=== PATIENT | female | born 1990 | race Caucasian/White ===

== ENCOUNTER 2020-03-24 08:18 | Inpatient (IN) | payer BC, MEDICAID ==
[~2020-03-24] VITALS: Ht 165.1 cm; Wt 66.8 kg
[2020-03-24 08:22] VITALS: BP 115/78
[2020-03-24 08:32] VITALS: BP 115/78
[2020-03-24] MEDS ORDERED: NS 1000ML 1,000 ML ONE (08:32)
--- NOTE | 2020-03-24 08:35 | ER.PDOC ---
General Chief Complaint: Requesting Medical Care Stated Complaint: FLU LIKE SYMPTOMS Time seen by MD: 08:28 Source: patient Exam Limitations: no limitations History of Present Illness Initial Comments Patient c/o fever, sore throat, cough, nausea with vomiting x 24 hours. Tmax 103. Denies SOB. She also c/o redness, warmth and pain in left breast and bel ieves she may have mastitis. Timing/Duration: gradual, yesterday Severity: mild, moderate Associated Symptoms: fever/chills, sore throat, cough Allergies: Coded Allergies: No Known Allergies (Unverified , 03/24/20) Constitutional: chills, fever EENTM: throat pain Respiratory: cough Cardiovascular: no symptoms reported, other Gastrointestinal: nausea, vomiting Genitourinary: no symptoms reported Musculoskeletal: no symptoms reported Skin: no symptoms reported Psychiatric/Neurological: no symptoms reported Endocrine: no symptoms reported All Other Systems: Reviewed and Negative Past Medical History Medical History: no pertinent history Surgical History: no surgical history Family History Significant Family History: no pertinent family hx Social History Smoking: non-smoker Alcohol Use: none Drug Use: none Physical Exam General Appearance: alert, no distress, other (left breast is erythematous, tender and warm with induration c/w mastitis) Eye: eyes nml inspection, lids & conjunct. nml, PERRL, no nystagmus Nose: nose nml Throat: pharyngeal erythema Neck: nml inspection, supple Respiratory: no resp.distress, breath sounds nml Abdomen: non-tender, no organomegaly CVS: heart sounds nml, tachycardia (120-140 on exam) Skin: color nml, no rash, warm/dry Extremities: non-tender, nml ROM, no pedal edema NEURO/PSYCH: oriented x 3, motor nml Results/Orders Results/Orders Orders - ISAEL GREGG DO 0.9 % Sodium Chloride (Ns 1000ml) (03/24/20 08:32) Cbc With Auto Diff (03/24/20 08:36) Comprehensive Metabolic Panel (03/24/20 08:36) Blood Culture (03/24/20 08:36) Xr Chest 1v (03/24/20 08:36) PT (03/24/20 08:36) Partial Thromboplastin Time. (03/24/20 08:36) Saline Lock (03/24/20 08:36) Lactic Acid(Ml) (03/24/20 08:36) 0.9 % Sodium Chloride (Ns 1000ml) (03/24/20 08:36) Ondansetron Hcl/Pf (Zofran) (03/24/20 08:36) Ceftriaxone Sodium (Rocephin) (03/24/20 08:36) Influenza A&B (03/24/20 08:36) Strep Screen (03/24/20 08:36) Novel Coronavirus 2019(Dshs) (03/24/20 08:36) 0.9 % Sodium Chloride (Ns 100ml) (03/24/20 08:44) Ceftriaxone Sodium (Rocephin) (03/24/20 08:44) Urinalysis (03/24/20 08:52) Hcg Urine (03/24/20 08:52) Urine Culture (03/24/20 09:20) 0.9 % Sodium Chloride (Ns 1000ml) (03/24/20 09:59) Covid19 Antigen Viridiana Elvira (03/24/20 10:41) Vital Signs Date Time Temp Pulse Resp B/P (MAP) Pulse Ox O2 Delivery O2 Flow Rate FiO2 03/24/20 11:20 98.4 119 20 113/64 (80) 98 Room Air 03/24/20 10:20 98.4 118 20 105/64 (78) 98 Room Air 03/24/20 09:33 97.6 124 20 99/68 (78) 98 Room Air 03/24/20 08:32 97.6 128 20 115/78 (90) 97 Room Air 03/24/20 08:22 97.6 128 20 97 03/24/20 08:22 97.6 128 20 Administered Medications Medications (Trade) Dose Ordered Sig/Jose Route PRN Reason Start Time Stop Time Status Last Admin Dose Admin Ceftriaxone Sodium 1000 mg/ Sodium Chloride 100 ml @ 100 mls/hr STAT STAT IV 03/24/20 08:36 03/24/20 09:35 UNV 03/24/20 08:52 100 MLS/HR Ondansetron HCl (Zofran) 4 mg STAT STAT IV 03/24/20 08:36 03/24/20 08:37 UNV 03/24/20 08:52 4 MG Sodium Chloride 1,000 ml @ 0 mls/hr Q0M STAT IV 03/24/20 09:59 03/24/20 10:00 DC 03/24/20 10:04 1,000 MLS/HR Sodium Chloride 1,000 ml @ 1,200 mls/hr Q50M STAT IV 03/24/20 08:36 03/24/20 09:25 UNV 03/24/20 09:03 1,200 MLS/HR Laboratory Tests Test 03/24/20 08:40 03/24/20 09:06 03/24/20 09:20 03/24/20 10:58 White Blood Count 14.8 10^3/uL (4.5-11.0) H Red Blood Count 4.17 10^6/uL (4.00-5.20) Hemoglobin 13.9 g/dL (12.0-15.0) Hematocrit 40.4 % (36.0-46.0) Mean Corpuscular Volume 96.9 fL (78-100) Mean Corpuscular Hemoglobin 33.3 pg (26-34) Mean Corpuscular Hemoglobin Concent 34.4 g/dL (33-36.5) Red Cell Distribution Width 11.4 % (11.5-14.5) L Platelet Count 278 10^3/uL (150-400) Mean Platelet Volume 9.3 fL (7.8-11.0) Neutrophils (%) (Auto) 92.9 % (41.0-85.0) *H Lymphocytes (%) (Auto) 2.3 % (24.0-44.0) *L Monocytes (%) (Auto) 3.7 % (5.0-12.0) L Neutrophils # (Auto) 13.7 10^3/uL (1.8-7.7) H Lymphocytes # (Auto) 0.34 10^3/uL1 (1.0-4.8) L Monocytes # (Auto) 0.6 10^3/uL (0.3-0.8) Absolute Immature Granulocyte (auto 0.06 10^3 u/L (0-2) Absolute Eosinophils (auto) 0.1 10^3/uL (0.0-0.2) Immature Granulocytes % 0.40 % (0.00-0.50) Eosinophils % 0.6 % (0.0-5.0) Basophils % 0.1 % (0.0-0.2) Basophils # 0.0 10^3/uL (0.0-0.1) Prothrombin Time 12.4 SEC (9.3-11.3) H Prothrombin Time INR (Non-Therap) 1.2 Activated Partial Thromboplast Time 26.5 SEC (24.67-30.72) Sodium Level 135 mmol/L (132-145) Potassium Level 3.5 mmol/L (3.6-5.2) L Chloride Level 99.0 mmol/L (96-109) Carbon Dioxide Level 23.9 mmol/L (20.0-32) Anion Gap 15.6 Blood Urea Nitrogen 15 mg/dL (7-18) Creatinine 1.20 mg/dL (0.59-1.40) Estimated GFR () 64.7 (>/=60) Est GFR (CKD-EPI)(Non-Afr Moroccan) 53.5 (>/=60) BUN/Creatinine Ratio 12.0 Glucose Level 134 mg/dL (70-110) H Calcium Level 9.5 mg/dL (8.4-10.5) Total Bilirubin 1.3 mg/dL (0.2-1.0) H Aspartate Amino Transferase (AST) 47 U/L (0-35) H Alanine Aminotransferase (ALT) 71 U/L (12-78) Alkaline Phosphatase 89 U/L (50-136) Total Protein 8.7 g/dL (6.4-8.2) H Albumin 4.1 g/dL (3.4-5.0) Globulin 4.6 Albumin/Globulin Ratio 0.891 Influenza Type A Antigen NEGATIVE (NEG) Influenza B Immunofluorescence NEGATIVE (NEG) Group A Streptococcus Screen POSITIVE (NEGATIVE) Lactic Acid Level 2.9 mmol/L (0.5-1.9) *H Urine Collection Type VOID Urine Color DARK YELLOW (YELLOW) H Urine Appearance CLOUDY (CLEAR) H Urine Bilirubin NEGATIVE MG/DL (NEGATIVE) Urine Ketones 15 mg/dL (NEGATIVE) H Urine Specific [place] >1.030 (1.005-1.035) Urine pH 5.5 (5.0-6.0) Urine Protein 30 mg/dL (NEGATIVE) H Urine Urobilinogen 1.0 (NEGATIVE) H Urine Nitrate NEGATIVE (NEGATIVE) Urine Leukocyte Esterase NEGATIVE (NEGATIVE) Urine Blood SMALL (NEGATIVE) Urine RBC 5-10 RBC/HPF (NONE SEEN) H Urine WBC 2-5 WBC/HPF (0-2) Urine Squamous Epithelial Cells MANY #/HPF (FEW) Urine Bacteria MANY (NONE SEEN) H Urine Glucose NORMAL (NEGATIVE) Urine HCG, Qualitative NEGATIVE (NEGATIVE) SARS-CoV-2 Antigen (Rapid) NEGATIVE (NEGATIVE) Progress Progress WBC 14.8, lactic acid 2.9, strep +; after 2L NS bolus, patient's HR persists 118 EKG/XRAY/CT/US XRAY: chest (clear) Consult/PCP Time Consult/PCP Called: 11:29 Consult/PCP: Dr. Moncada Reason/Comments: will admit ER DEPART Departure Time of Disposition: 10:45 Disposition: 09 ADMITTED INPATIENT Impression: Primary Impression: Mastitis Additional Impressions: Viral syndrome Suspected 2019 novel coronavirus infection Dehydration Strep pharyngitis Sepsis Condition: Improved Referrals: PCP,UNKNOWN (PCP) PRIMARY CARE PROVIDER Duration or Time Spent with Pa: 20 min Problem Qualifiers Additional Impressions: Sepsis Sepsis type: sepsis due to unspecified organism Sepsis acute organ dysfunction status: without acute organ dysfunction Qualified Codes: A41.9 - Sepsis, unspecified organism ISAEL GREGG DO Mar 24, 2020 08:35
[2020-03-24] MEDS ORDERED: ZOFRAN IV STA (08:36)
[2020-03-24] MEDS ORDERED: NS 1000ML 1,000 ML IV STA (08:36)
[2020-03-24] MEDS ORDERED: ROCEPHIN 1,000 MG in NS 100ML 100 ML IV STA (08:36)
[2020-03-24] MEDS ORDERED: NS 100ML 100 ML IV ONE (08:44)
[2020-03-24] MEDS ORDERED: ROCEPHIN ONE (08:44)
[2020-03-24 09:02] LABS: BASOPHIL % 0.1 % (0.0-0.2); EOSINOPHIL # 0.1 10^3/uL (0.0-0.2); EOSINOPHIL % 0.6 % (0.0-5.0); LYMPHOCYTES # 0.34 10^3/uL1 (1.0-4.8); LYMPHOCYTES % 2.3 % (24.0-44.0); MEAN CORP HGB 33.3 pg (26-34); MONOCYTES # 0.6 10^3/uL (0.3-0.8); MONOCYTES % 3.7 % (5.0-12.0); NEUTROPHIL # 13.7 10^3/uL (1.8-7.7); NEUTROPHILS % 92.9 % (41.0-85.0); PLATELET COUNT 278 10^3/uL (150-400); RED CELL DISTRIBUTION WIDTH 11.4 % (11.5-14.5)
[2020-03-24 09:19] LABS: CALCIUM 9.5 mg/dL (8.4-10.5); CARBON DIOXIDE 23.9 mmol/L (20.0-32)
[2020-03-24 09:33] VITALS: BP 99/68
--- NOTE | 2020-03-24 09:34 | NUR ---
CRITICAL [facility] FROM LAB CALLED WITH LACTIC ACID OF 2.9, REPEATED AND REPORTED TO EDP.
--- NOTE | 2020-03-24 09:42 | DIREP ---
PROCEDURE:CHEST 1 VIEW COMPARISON:None. INDICATIONS:fever, cough FINDINGS: LUNGS/PLEURA:No significant pulmonary parenchymal abnormalities or pleural effusion. CARDIAC:Normal cardiac silhouette and normal pulmonary vascularity. MEDIASTINUM:Normal BONES:Normal OTHER:No additional findings. CONCLUSION:No acute cardiopulmonary process. Dictated by: Lorrie Gonzáles MD on 03/24/2020 at 09:40 AM
[2020-03-24 09:47] LABS: APPEARANCE,URINE CLOUDY (CLEAR); BILIRUBIN,URINE NEGATIVE (NEGATIVE); UA COLOR DARK YELLOW (YELLOW)
[2020-03-24] MEDS ORDERED: NS 1000ML 1,000 ML STA (09:59)
[2020-03-24 10:20] VITALS: BP 105/64
[2020-03-24 11:20] VITALS: BP 113/64
[2020-03-24] MEDS: NS 1000ML 1,000 ML IV SCH ×2 (11:44→20:00)
[2020-03-24] MEDS ORDERED: ZOFRAN IV PRN (12:00)
[2020-03-24] MEDS ORDERED: TYLENOL PO PRN (13:00)
[2020-03-24] MEDS ORDERED: MORPHINE SULFATE IV PRN (13:00)
[2020-03-24 13:21] LABS: BASOPHIL % 0.1 % (0.0-0.2); EOSINOPHIL # 0.1 10^3/uL (0.0-0.2); EOSINOPHIL % 0.6 % (0.0-5.0); LYMPHOCYTES # 0.37 10^3/uL1 (1.0-4.8); LYMPHOCYTES % 3.8 % (24.0-44.0); MEAN CORP HGB 33.2 pg (26-34); MONOCYTES # 0.3 10^3/uL (0.3-0.8); MONOCYTES % 3.5 % (5.0-12.0); NEUTROPHIL # 8.9 10^3/uL (1.8-7.7); NEUTROPHILS % 91.9 % (41.0-85.0); PLATELET COUNT 234 10^3/uL (150-400); RED CELL DISTRIBUTION WIDTH 11.5 % (11.5-14.5)
[2020-03-24 13:34] LABS: CALCIUM 8.3 mg/dL (8.4-10.5)
[2020-03-24] MEDS: VANCOMYCIN HCL 1 GM in NS 250ML 250 ML IV SCH (14:00)
[2020-03-24 14:30] LABS: DIFFERENTIAL COMMENT NORMAL; LYMPHOCYTE 3 % (25-36); MONOCYTE 6 % (3-9); SEGMENTED NEUTROPHILS 91 % (31-76)
--- NOTE | 2020-03-24 17:27 | PCM.HP ---
HISTORY & PHYSICAL HISTORY & PHYSICAL DATE OF ADMISSION: 03/24/2020 CHIEF COMPLAINT: Fever HISTORY OF PRESENT ILLNESS: Patient is a 29y/o nursing mother that presented to the ER with with 2days hx of fever. This has been associated with chills, nausea and vomiting. She also noted abdominal pain but denies diarrhea. patient has also been having sore throat and cough but denies SOB and chest pain. Child recently had Group. is also having sore throat. Patient has also noted left breast pain and redness. She claimed she has had mastitis for awhile. At presentation, Strept test was positive. WBC appeared elevated at 14.8 with left shift. Her lactic acid was also elevated at 2.9 but returned to normal after treatment with IV fluid 2L. UA demonstrated no nitrite and leukocyte esterase. CXR appeared unremarkable for acute disease. Antibody covid test was negative. Patient was given In rocephin in the ER and admitted for further evaluation and treatment. ALLERGIES: NKDA CURRENT MEDICATIONS: none PAST MEDICAL HISTORY: None SOCIAL HISTORY: No ETOH No illicit drugs No smoking with two kids Breast feeding FAMILY HISTORY: Not contributory Laboratory Tests Test 03/24/20 08:40 03/24/20 09:06 03/24/20 09:10 03/24/20 09:20 White Blood Count 14.8 10^3/uL (4.5-11.0) Red Blood Count 4.17 10^6/uL (4.00-5.20) Hemoglobin 13.9 g/dL (12.0-15.0) Hematocrit 40.4 % (36.0-46.0) Mean Corpuscular Volume 96.9 fL (78-100) Mean Corpuscular Hemoglobin 33.3 pg (26-34) Mean Corpuscular Hemoglobin Concent 34.4 g/dL (33-36.5) Red Cell Distribution Width 11.4 % (11.5-14.5) Platelet Count 278 10^3/uL (150-400) Mean Platelet Volume 9.3 fL (7.8-11.0) Neutrophils (%) (Auto) 92.9 % (41.0-85.0) Lymphocytes (%) (Auto) 2.3 % (24.0-44.0) Monocytes (%) (Auto) 3.7 % (5.0-12.0) Neutrophils # (Auto) 13.7 10^3/uL (1.8-7.7) Lymphocytes # (Auto) 0.34 10^3/uL1 (1.0-4.8) Monocytes # (Auto) 0.6 10^3/uL (0.3-0.8) Absolute Immature Granulocyte (auto 0.06 10^3 u/L (0-2) Absolute Eosinophils (auto) 0.1 10^3/uL (0.0-0.2) Immature Granulocytes % 0.40 % (0.00-0.50) Eosinophils % 0.6 % (0.0-5.0) Basophils % 0.1 % (0.0-0.2) Basophils # 0.0 10^3/uL (0.0-0.1) Prothrombin Time 12.4 SEC (9.3-11.3) Prothrombin Time INR (Non-Therap) 1.2 Activated Partial Thromboplast Time 26.5 SEC (24.67-30.72) Sodium Level 135 mmol/L (132-145) Potassium Level 3.5 mmol/L (3.6-5.2) Chloride Level 99.0 mmol/L (96-109) Carbon Dioxide Level 23.9 mmol/L (20.0-32) Anion Gap 15.6 Blood Urea Nitrogen 15 mg/dL (7-18) Creatinine 1.20 mg/dL (0.59-1.40) Estimated GFR () 64.7 (>/=60) Est GFR (CKD-EPI)(Non-Afr Serbian) 53.5 (>/=60) BUN/Creatinine Ratio 12.0 Glucose Level 134 mg/dL (70-110) Calcium Level 9.5 mg/dL (8.4-10.5) Total Bilirubin 1.3 mg/dL (0.2-1.0) Aspartate Amino Transf (AST/SGOT) 47 U/L (0-35) Alanine Aminotransferase (ALT/SGPT) 71 U/L (12-78) Alkaline Phosphatase 89 U/L (50-136) Total Protein 8.7 g/dL (6.4-8.2) Albumin 4.1 g/dL (3.4-5.0) Globulin 4.6 Albumin/Globulin Ratio 0.891 Influenza Type A Antigen NEGATIVE (NEG) Influenza B Immunofluorescence NEGATIVE (NEG) Group A Streptococcus Screen POSITIVE (NEGATIVE) Lactic Acid Level 2.9 mmol/L (0.5-1.9) Differential Total Cells Counted 100 #CELLS Segmented Neutrophils 91 % (31-76) Lymphocytes 3 % (25-36) Monocytes 6 % (3-9) Differential Comment NORMAL Platelet Estimate ADEQUATE Platelet Morphology NORMAL Blood Morphology Comment NORMAL MORPHOLOGY Urine Collection Type VOID Urine Color DARK YELLOW (YELLOW) Urine Appearance CLOUDY (CLEAR) Urine Bilirubin NEGATIVE MG/DL (NEGATIVE) Urine Ketones 15 mg/dL (NEGATIVE) Urine Specific [place] >1.030 (1.005-1.035) Urine pH 5.5 (5.0-6.0) Urine Protein 30 mg/dL (NEGATIVE) Urine Urobilinogen 1.0 (NEGATIVE) Urine Nitrate NEGATIVE (NEGATIVE) Urine Leukocyte Esterase NEGATIVE (NEGATIVE) Urine Blood SMALL (NEGATIVE) Urine RBC 5-10 RBC/HPF (NONE SEEN) Urine WBC 2-5 WBC/HPF (0-2) Urine Squamous Epithelial Cells MANY #/HPF (FEW) Urine Bacteria MANY (NONE SEEN) Urine Glucose NORMAL (NEGATIVE) Urine HCG, Qualitative NEGATIVE (NEGATIVE) Test 03/24/20 10:58 03/24/20 11:34 03/24/20 13:15 SARS-CoV-2 Antigen (Rapid) NEGATIVE (NEGATIVE) Lactic Acid Followup at 2 Hours 0.8 mmol/L (0.5-1.9) White Blood Count 9.7 10^3/uL (4.5-11.0) Red Blood Count 3.74 10^6/uL (4.00-5.20) Hemoglobin 12.4 g/dL (12.0-15.0) Hematocrit 36.0 % (36.0-46.0) Mean Corpuscular Volume 96.3 fL (78-100) Mean Corpuscular Hemoglobin 33.2 pg (26-34) Mean Corpuscular Hemoglobin Concent 34.4 g/dL (33-36.5) Red Cell Distribution Width 11.5 % (11.5-14.5) Platelet Count 234 10^3/uL (150-400) Mean Platelet Volume 9.2 fL (7.8-11.0) Neutrophils (%) (Auto) 91.9 % (41.0-85.0) Lymphocytes (%) (Auto) 3.8 % (24.0-44.0) Monocytes (%) (Auto) 3.5 % (5.0-12.0) Neutrophils # (Auto) 8.9 10^3/uL (1.8-7.7) Lymphocytes # (Auto) 0.37 10^3/uL1 (1.0-4.8) Monocytes # (Auto) 0.3 10^3/uL (0.3-0.8) Absolute Immature Granulocyte (auto 0.01 10^3 u/L (0-2) Absolute Eosinophils (auto) 0.1 10^3/uL (0.0-0.2) Immature Granulocytes % 0.10 % (0.00-0.50) Eosinophils % 0.6 % (0.0-5.0) Basophils % 0.1 % (0.0-0.2) Basophils # 0.0 10^3/uL (0.0-0.1) Sodium Level 137 mmol/L (132-145) Potassium Level 3.8 mmol/L (3.6-5.2) Chloride Level 104.0 mmol/L (96-109) Carbon Dioxide Level 23.0 mmol/L (20.0-32) Glucose Level 93 mg/dL (70-110) Blood Urea Nitrogen 10 mg/dL (7-18) Creatinine 0.88 mg/dL (0.59-1.40) Calcium Level 8.3 mg/dL (8.4-10.5) Anion Gap 13.8 Estimated GFR () 92.6 (>/=60) Est GFR (CKD-EPI)(Non-Afr Serbian) 76.5 (>/=60) BUN/Creatinine Ratio 11.0 Procalcitonin 4.32 ng/mL (0.05-0.5) REVIEW OF SYSTEMS: As in HPI, others are negative PHYSICAL EXAMINATION: GENERAL: Febrile, not in obvious distress VITAL SIGNS: First Vital Signs Date Time Temp Pulse Resp B/P (MAP) Pulse Ox O2 Delivery O2 Flow Rate FiO2 03/24/20 08:22 97.6 128 20 03/24/20 08:22 97 03/24/20 08:32 115/78 (90) Room Air Last Vital Signs Date Time Temp Pulse Resp B/P (MAP) Pulse Ox O2 Delivery O2 Flow Rate FiO2 03/24/20 16:41 Room Air 03/24/20 11:20 98.4 119 20 113/64 (80) 98 HEENT:PERRLA, Erythematous oropharynx NECK: supple LUNGS: CTA HEART: Sinus tachycardia, no mumurs ABDOMEN: Soft, non-tender, non-distended, BS++ EXTREMITIES: No edema NEUROLOGIC: alert and oriented, CN3-12 intact bilaterrally LABORATORY DATA: see chart ASSESSMENT AND PLANS 29 years old lady presenting with worsening fever, nausea and vomiting with elevated wbc, LA, PCT and HR SIRS/SEPSIS; -evidenced by elevated LA, tachycardia, elevated wbc and fever -source maybe from the breast or throat -pct is elevated -blood cultures ordered -continue emperic broad spectrum abx with Iv rocephin and vancomycin -continue maintenance IV fluid Intractable nausea and vomiting -Iv zofran prn DVT prophylaxis: lovenox 40mg daily -Further care per clinical course BRAVO CONRAD MD Mar 24, 2020 17:27
[2020-03-24] MEDS: LOVENOX SQ SCH (17:30)
[2020-03-24] MEDS ORDERED: NS 1000ML 1,000 ML IV ONE (17:30)
[2020-03-24 20:36] VITALS: BP 88/50
[2020-03-24] MEDS: PEPCID PO SCH (21:00)
[2020-03-25] VITALS (7 sets, daily range): BP systolic 92–112; BP diastolic 56–77
[2020-03-25] MEDS: VANCOMYCIN HCL 1 GM in NS 250ML 250 ML IV SCH ×2 (02:00→15:52)
[2020-03-25] MEDS: NS 1000ML 1,000 ML IV SCH ×2 (03:08→12:00)
[2020-03-25 05:44] LABS: BASOPHIL % 0.1 % (0.0-0.2); EOSINOPHIL # 0.4 10^3/uL (0.0-0.2); EOSINOPHIL % 5.4 % (0.0-5.0); LYMPHOCYTES # 0.53 10^3/uL1 (1.0-4.8); LYMPHOCYTES % 7.5 % (24.0-44.0); MEAN CORP HGB 33.8 pg (26-34); MONOCYTES # 0.3 10^3/uL (0.3-0.8); MONOCYTES % 4.7 % (5.0-12.0); NEUTROPHIL # 5.8 10^3/uL (1.8-7.7); PLATELET COUNT 206 10^3/uL (150-400); RED CELL DISTRIBUTION WIDTH 11.6 % (11.5-14.5)
[2020-03-25 06:28] LABS: CALCIUM 8.1 mg/dL (8.4-10.5); CARBON DIOXIDE 21.8 mmol/L (20.0-32)
[2020-03-25] MEDS: PEPCID PO SCH ×2 (09:00→20:25)
[2020-03-25] MEDS ORDERED: ROCEPHIN 1,000 MG in NS 100ML 100 ML IV SCH (10:00)
--- NOTE | 2020-03-25 14:34 | PRM.PN ---
PROGRESS NOTE SUBJECTIVE Patient is seen and examined. Feeling better today and requesting for d/c to enable her attend to her 13months old baby. BC x2 and urine culture at day 1 are negative. No fever overnight. Denies nausea and vomiting. OBJECTIVE First Vital Signs Date Time Temp Pulse Resp B/P (MAP) Pulse Ox O2 Delivery O2 Flow Rate FiO2 03/24/20 08:22 97.6 128 20 03/24/20 08:22 97 03/24/20 08:32 115/78 (90) Room Air Last Vital Signs Date Time Temp Pulse Resp B/P (MAP) Pulse Ox O2 Delivery O2 Flow Rate FiO2 03/25/20 13:16 97.8 73 19 107/68 (81) 97 03/24/20 23:14 Room Air Laboratory Tests 03/25/20 05:12: White Blood Count 7.0, Red Blood Count 3.17L, Hemoglobin 10.7L, Hematocrit 30.6L , Mean Corpuscular Volume 96.5, Mean Corpuscular Hemoglobin 33.8, Mean Corpuscular Hemoglobin Concent 35.0, Red Cell Distribution Width 11.6, Platelet Count 206, Mean Platelet Volume 9.5, Neutrophils (%) (Auto) 82.0, Lymphocytes (%) (Auto) 7.5L, Monocytes (%) (Auto) 4.7L, Neutrophils # (Auto) 5.8, Lymphocytes # (Auto) 0.53L, Monocytes # (Auto) 0.3, Absolute Immature Granulocyte (auto 0.02, Absolute Eosinophils (auto) 0.4H, Immature Granulocytes % 0.30, Eosinophils % 5.4H, Basophils % 0.1, Basophils # 0.0, Sodium Level 140, Potassium Level 3.4L, Chloride Level 108.0, Carbon Dioxide Level 21.8, Anion Gap 13.6, Blood Urea Nitrogen 7, Creatinine 0.80, Estimated GFR () 103.3, Est GFR (CKD-EPI)(Non-Afr Andorran) 85.4, BUN/Creatinine Ratio 8.0, Glucose Level 107, Calcium Level 8.1L, Total Bilirubin 0.4, Aspartate Amino Transf (AST/SGOT) 21, Alanine Aminotransferase (ALT/SGPT) 42, Alkaline Phosphatase 61, Total Protein 5.9L, Albumin 2.6L, Globulin 3.3, Albumin/Globulin Ratio 0.787 PHYSICAL EXAMINATION GENERAL: Stable, no obvious distress HEENT: PERRLA NECK: supple CHEST: CTA HEART: RRR ABDOMEN: soft,non-tender, BS++ EXTREMITIES: no edema CHROMIUM PLATER: alert, oriented, CN3-12 intact, No focal motor deficit. ASSESSMENT AND PLANS 29 years old lady presented to hospital with worsening fever, nausea and vomiting with elevated wbc, LA, PCT and HR SIRS/SEPSIS; -evidenced by elevated LA, tachycardia, elevated wbc and fever, resolved at this time -source maybe from the breast or throat -pct was elevated at presentation -blood cultures ordered: Preliminary report is negative -continue emperic broad spectrum abx with Iv rocephin and vancomycin -D/c maintenance IV fluid Intractable nausea and vomiting -resolved -Iv zofran prn Hypokalemia -start replacement treatment DVT prophylaxis: lovenox 40mg daily -Further care per clinical course. Patient threatened to leave AMA. Discussed importance of having culture results at 48hrs before discharge. Will continue emperic abx at this time. May d/c home tomorrow if all her cultures are negative BRAVO CONRAD MD Mar 25, 2020 14:34
[2020-03-25] MEDS: LOVENOX SQ SCH (17:30)
--- NOTE | 2020-03-25 22:12 | PRM.DC ---
Discharge Summary Date of Discharge: Mar 25, 2020 Time of Request to Discharge: 22:12 Hospital Course Patient is a 29y/o nursing mother that presented to the ER with with 2days hx of fever. This has been associated with chills, nausea and vomiting. She also noted abdominal pain but denies diarrhea. Patient has also been having sore throat and cough but denies SOB and chest pain. 13 month old child recently had croup. is also having sore throat. Patient has also noted left breast pain and redness. She claimed she has had mastitis for awhile. Strep test was positive. WBC appeared elevated at 14.8 with left shift. Her lactic acid was also elevated at 2.9 but returned to normal after treatment with IV fluid 2L. UA demonstrated no nitrite and leukocyte esterase. CXR appeared unremarkable for acute disease. Antibody covid test was negative. Patient was given In rocephin in the ER and admitted for further evaluation and treatment. Shiela was given IV ceftriaxone and IV vancomycin in the hospital. She pumped her breast milk as her [id number] who was breast-feeding has not been able to visit her due to coronavirus in the hospital. On her second day of admission the patient was feeling much better and strongly desired to return to her [id number] at home as her child has not been doing well without its mother per her report. Her cultures have remained negative so far with continued results pending she is strongly requesting to go home on oral antibiotics at this time. She states that she has follow-up with primary care provider who can help her monitor the results of her blood cultures and adjust antibiotics as needed. She was discharged on broad-spectrum antibiotics pending further culture results. She has been afebrile in the hospital, her white blood cell count has normalized and she states that the pain and redness in her left breast is improving. She is tolerating p.o. without emesis and is currently stable for discharge with close outpatient follow-up she agrees to return immediately for any worsening in her condition Patient History: Asthma G8 MOTHER General: Alert, Oriented X3, Cooperative HEENT: Atraumatic Lungs: Normal air movement Heart: Regular rate Extremities: No cyanosis, No edema, Normal pulses Skin: Other (Mild erythema of the left breast which patient states is improving no palpable abscess or phlegmon at this time) Neuro: Strength at 5/5 X4 ext Scheduled Cefdinir (Cefdinir), 300 MG PO BID Sulfamethoxazole/Trimethoprim (Bactrim Ds Tablet), 1 EACH PO BID Sepsis Evaluation @ Discharge 03/24/20 23:43 Course Sepsis Screening Results: Posi: NEGATIVE Sepsis Qualifier/Stage: NO DEFINITE RISK Duration or Total Time Spent w: 20 min Vitals & review Data Vital Sign - Last 24 Hours 03/24/20 03/25/20 03/25/20 03/25/20 23:14 00:37 01:01 04:18 Temp 98.2 98.2 97.1 Pulse 102 102 115 Resp 20 B/P (MAP) 92/56 (68) 104/70 (81) Pulse Ox 97 97 96 O2 Delivery Room Air 03/25/20 03/25/20 03/25/20 03/25/20 09:00 13:16 16:33 20:01 Temp 98.1 97.8 98.4 98.6 Pulse 75 73 90 83 Resp 18 18 B/P (MAP) 98/64 (75) 107/68 (81) 109/72 (84) Pulse Ox 99 97 100 98 O2 Delivery Room Air Intake and Output 03/25/20 07:00 Intake Total 480 ml Balance 480 ml Laboratory Tests Test 03/24/20 08:40 03/24/20 09:06 03/24/20 09:10 03/24/20 09:20 White Blood Count 14.8 10^3/uL Red Blood Count 4.17 10^6/uL Hemoglobin 13.9 g/dL Hematocrit 40.4 % Mean Corpuscular Volume 96.9 fL Mean Corpuscular Hemoglobin 33.3 pg Mean Corpuscular Hemoglobin Concent 34.4 g/dL Red Cell Distribution Width 11.4 % Platelet Count 278 10^3/uL Mean Platelet Volume 9.3 fL Neutrophils (%) (Auto) 92.9 % Lymphocytes (%) (Auto) 2.3 % Monocytes (%) (Auto) 3.7 % Neutrophils # (Auto) 13.7 10^3/uL Lymphocytes # (Auto) 0.34 10^3/uL1 Monocytes # (Auto) 0.6 10^3/uL Absolute Immature Granulocyte (auto 0.06 10^3 u/L Absolute Eosinophils (auto) 0.1 10^3/uL Immature Granulocytes % 0.40 % Eosinophils % 0.6 % Basophils % 0.1 % Basophils # 0.0 10^3/uL Prothrombin Time 12.4 SEC Prothrombin Time INR (Non-Therap) 1.2 Activated Partial Thromboplast Time 26.5 SEC Sodium Level 135 mmol/L Potassium Level 3.5 mmol/L Chloride Level 99.0 mmol/L Carbon Dioxide Level 23.9 mmol/L Anion Gap 15.6 Blood Urea Nitrogen 15 mg/dL Creatinine 1.20 mg/dL Estimated GFR () 64.7 Est GFR (CKD-EPI)(Non-Afr [place]) 53.5 BUN/Creatinine Ratio 12.0 Glucose Level 134 mg/dL Calcium Level 9.5 mg/dL Total Bilirubin 1.3 mg/dL Aspartate Amino Transf (AST/SGOT) 47 U/L Alanine Aminotransferase (ALT/SGPT) 71 U/L Alkaline Phosphatase 89 U/L Total Protein 8.7 g/dL Albumin 4.1 g/dL Globulin 4.6 Albumin/Globulin Ratio 0.891 Influenza Type A Antigen NEGATIVE Influenza B Immunofluorescence NEGATIVE Group A Streptococcus Screen POSITIVE Lactic Acid Level 2.9 mmol/L Differential Total Cells Counted 100 #CELLS Segmented Neutrophils 91 % Lymphocytes 3 % Monocytes 6 % Differential Comment NORMAL Platelet Estimate ADEQUATE Platelet Morphology NORMAL Blood Morphology Comment NORMAL MORPHOLOGY Urine Collection Type VOID Urine Color DARK YELLOW Urine Appearance CLOUDY Urine Bilirubin NEGATIVE MG/DL Urine Ketones 15 mg/dL Urine Specific [place] >1.030 Urine pH 5.5 Urine Protein 30 mg/dL Urine Urobilinogen 1.0 Urine Nitrate NEGATIVE Urine Leukocyte Esterase NEGATIVE Urine Blood SMALL Urine RBC 5-10 RBC/HPF Urine WBC 2-5 WBC/HPF Urine Squamous Epithelial Cells MANY #/HPF Urine Bacteria MANY Urine Glucose NORMAL Urine HCG, Qualitative NEGATIVE Test 03/24/20 10:58 03/24/20 11:34 03/24/20 13:15 03/25/20 05:12 SARS-CoV-2 Antigen (Rapid) NEGATIVE Lactic Acid Followup at 2 Hours 0.8 mmol/L White Blood Count 9.7 10^3/uL 7.0 10^3/uL Red Blood Count 3.74 10^6/uL 3.17 10^6/uL Hemoglobin 12.4 g/dL 10.7 g/dL Hematocrit 36.0 % 30.6 % Mean Corpuscular Volume 96.3 fL 96.5 fL Mean Corpuscular Hemoglobin 33.2 pg 33.8 pg Mean Corpuscular Hemoglobin Concent 34.4 g/dL 35.0 g/dL Red Cell Distribution Width 11.5 % 11.6 % Platelet Count 234 10^3/uL 206 10^3/uL Mean Platelet Volume 9.2 fL 9.5 fL Neutrophils (%) (Auto) 91.9 % 82.0 % Lymphocytes (%) (Auto) 3.8 % 7.5 % Monocytes (%) (Auto) 3.5 % 4.7 % Neutrophils # (Auto) 8.9 10^3/uL 5.8 10^3/uL Lymphocytes # (Auto) 0.37 10^3/uL1 0.53 10^3/uL1 Monocytes # (Auto) 0.3 10^3/uL 0.3 10^3/uL Absolute Immature Granulocyte (auto 0.01 10^3 u/L 0.02 10^3 u/L Absolute Eosinophils (auto) 0.1 10^3/uL 0.4 10^3/uL Immature Granulocytes % 0.10 % 0.30 % Eosinophils % 0.6 % 5.4 % Basophils % 0.1 % 0.1 % Basophils # 0.0 10^3/uL 0.0 10^3/uL Sodium Level 137 mmol/L 140 mmol/L Potassium Level 3.8 mmol/L 3.4 mmol/L Chloride Level 104.0 mmol/L 108.0 mmol/L Carbon Dioxide Level 23.0 mmol/L 21.8 mmol/L Glucose Level 93 mg/dL 107 mg/dL Blood Urea Nitrogen 10 mg/dL 7 mg/dL Creatinine 0.88 mg/dL 0.80 mg/dL Calcium Level 8.3 mg/dL 8.1 mg/dL Anion Gap 13.8 13.6 Estimated GFR () 92.6 103.3 Est GFR (CKD-EPI)(Non-Afr [place]) 76.5 85.4 BUN/Creatinine Ratio 11.0 8.0 Procalcitonin 4.32 ng/mL Total Bilirubin 0.4 mg/dL Aspartate Amino Transf (AST/SGOT) 21 U/L Alanine Aminotransferase (ALT/SGPT) 42 U/L Alkaline Phosphatase 61 U/L Total Protein 5.9 g/dL Albumin 2.6 g/dL Globulin 3.3 Albumin/Globulin Ratio 0.787 Current Medications Medications (Trade) Dose Ordered Sig/Jose PRN Reason Start Time Stop Time Status Last Admin Acetaminophen (Tylenol) 1,000 mg Q6H PRN PAIN 1 - 3 03/24/20 13:00 04/23/20 12:59 03/25/20 03:17 Ceftriaxone Sodium 1000 mg/ Sodium Chloride 100 ml @ 100 mls/hr Q24HRS 03/25/20 10:00 04/24/20 09:59 03/25/20 13:46 Enoxaparin Sodium (Lovenox) 40 mg Q24HRS 03/24/20 17:30 04/23/20 17:29 Famotidine (Pepcid) 20 mg BID 03/24/20 21:00 04/23/20 20:59 03/25/20 20:25 Morphine Sulfate (Morphine Sulfate) 2 mg Q4H PRN PAIN SEVER 03/24/20 13:00 04/23/20 12:59 Ondansetron HCl (Zofran) 4 mg Q4H PRN NAUSEA / VOMITING 03/24/20 12:00 04/23/20 11:59 Potassium Chloride (Klor-Con 10) 20 meq DAILY 03/26/20 09:00 04/25/20 08:59 Vancomycin HCl 1 gm/Sodium Chloride 250 ml @ 175 mls/hr Q12H 03/24/20 14:00 04/23/20 13:59 03/25/20 15:52 LEVEL 1 SEPSIS INFECTION CRITE: ABX Therapy LEVEL 2-SIRS (LIST ALL THAT AP: WBC>[id number] O2 Sat by Pulse Oximetry: 98 Plan Assessment SIRS/SEPSIS RESOLVED -WBC 14.8-->9.7-->7.0 Afebrile for greater than 24 hours. Lactic acid 2.9-->0.8 -Mastitis and Strep Pharyngitis -No growth in both blood culture bottles after 24 hours -Broad spectrum IV rocephin and vancomycin for 48 hours in the hospital switched to oral Bactrim and Cefdinir on discharge for total 10 day antibiotic course -Afebrile for greater than 24 hours. Patient has established primary care follow-up, she has contacted her clinic and they will help her keep track of blood culture results and adjust antibiotics as needed. ERICKA SANTORO MD Mar 25, 2020 22:12
[2020-03-25] MEDS ORDERED: SULF1TAB24 PO (22:16)
[2020-03-25] MEDS ORDERED: CEFD300C2 PO (22:16)
--- NOTE | 2020-03-25 22:41 | NUR ---
Dismissal instructions discussed with pt and she signed and verbalized understanding. Copy given to pt. Scripts given to pt. Saline lock to right hand DC'd. Pt is waiting for her to arrive to pick her up.
[2020-03-26 02:21] VITALS: BP 108/74
[2020-03-26] MEDS ORDERED: KLOR-CON 10 PO SCH (09:00)
== END 2020-03-25 22:56 | disposition home or self-care (01) | DRG 720 ==
LOC: ER 08:18 → MS 11:32
PROVIDERS: ADMIT Family Medicine; ATTEND Family Medicine
DX: A41.9 Sepsis, unspecified organism (principal); J02.0 Streptococcal pharyngitis; N61.0 Mastitis without abscess; E86.0 Dehydration; B34.9 Viral infection, unspecified; Z20.828 Contact with and (suspected) exposure to other viral communicable diseases; E87.6 Hypokalemia; R74.02 Elevation of levels of lactic acid dehydrogenase [LDH]; Z82.5 Family history of asthma and other chronic lower respiratory diseases
CPT/HCPCS: 36415; 71045; 80048; 80053; 81000; 81025; 83605; 84145; 85025; 85610; 85730; 87040; 87086; 87426; 87635; 87804; 87880; 99285; G0378; J0696; J1650; J2405; J3370; J7030; J7050